=== PATIENT | female | born 1960 | race Caucasian/White ===

== ENCOUNTER 2018-01-09 16:30 | Emergency (ER) | payer MEDICAID ==
[2018-01-09] MEDS ORDERED: Lactated Ringers 1,000 ML IV ONE (16:48)
--- NOTE | 2018-01-09 16:50 | EDM.PDOC ---
ED HPI GENERAL MEDICAL PROBLEM - General Chief Complaint: Head Injury Stated Complaint: TREE FALL ON HER Time Seen by Provider: 01/09/18 16:43 Source of Information: Reports: Patient, EMS, RN Notes Reviewed History Limitations: Reports: No Limitations - History of Present Illness INITIAL COMMENTS - FREE TEXT/NARRATIVE: 57-year-old female brought in by EMS services for a trauma at home, she was standing alongside a tree that fell she ended up getting hit in the head neck upper shoulder region. Was not to the ground did not lose consciousness however had 2 bouts of emesis EMS services were called transported to the hospital for further evaluation. No pain medications provided declines pain medication at this time. Past medical history hypothyroidism, last meal at 11:00 today Neck Pain Score (Numeric/FACES): 2 - Related Data Allergies Allergy/AdvReac Type Severity Reaction Status Date / Time No Known Allergies Allergy Verified 01/09/18 16:44 Home Meds: Home Meds Aspirin [Halfprin] 1 tab PO DAILY 01/09/18 [History] Citalopram Hydrobromide [Celexa] 1 tab PO DAILY 01/09/18 [History] Levothyroxine [Synthroid] 1 tab PO DAILY 01/09/18 [History] Pravastatin Sodium 1 tab PO BEDTIME 01/09/18 [History] Past Medical History Endocrine/Metabolic History: Reports: Hyperthyroidism Social & Family History - Tobacco Use Smoking Status *Q: Never Smoker ED ROS GENERAL - Review of Systems Review Of Systems: See Below Constitutional: Reports: No Symptoms HEENT: Reports: No Symptoms Respiratory: Reports: No Symptoms Cardiovascular: Reports: No Symptoms GI/Abdominal: Reports: Nausea, Vomiting Musculoskeletal: Reports: Neck Pain, Shoulder Pain Skin: Reports: No Symptoms Neurological: Reports: No Symptoms ED EXAM, HEAD INJURY - Physical Exam Exam: See Below Text/Narrative:: Primary survey GCS of 15 airway is open patent clear lungs are clear to auscultation bilaterally cardiovascular demonstrates regular rate and rhythm S1-S2 she is in a c-collar Secondary survey General: Female, not in any distress, alert and oriented x3 HEENT: head is atraumatic normocephalic, eyes pupils equal round reactive to light, sclera clear no conjunctivitis appreciated. Ears tympanic membranes clear and martinez landmarks and light reflex are present bilaterally canals are clear. Nose no septal deviation, nares are clear, no blood present. Mouth mucosa is moist and pink no erythema or exudate noted in soft palate, tongue is midline uvula is midline, dentition is intact. Neck: C-collar deferred Lungs: clear to auscultation bilaterally with symmetrical respirations, no adventitious noise appreciated. CV: Regular rate and rhythm S1 and S2 appreciated no murmurs rubs or gallops noted. 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 DIRECTED Lactated Ringers [Ringers, Lactated] 1,000 ml Med 01/09/18 16:48 Active IV BOLUS Sodium Chloride 0.9% [Normal Saline] 100 ml Med 01/09/18 17:15 Active IV ASDIRECTED Medication Orders Lactated Ringer's (Ringers, Lactated) 1,000 mls @ 500 mls/hr IV BOLUS ONE Stop: 01/09/18 18:47 Last Admin: 01/09/18 17:41 Dose: 500 mls/hr Sodium Chloride (Normal Saline) 100 mls @ 3 mls/sec IV ASDIRECTED JAMEL Last Admin: 01/09/18 17:24 Dose: 3 mls/sec Iopamidol (Isovue-300 (61%)) 100 ml IV . DIRECTED JAMEL Last Admin: 01/09/18 17:24 Dose: 100 ml Labs: Laboratory Tests 01/09/18 01/09/18 Range/Units 17:08 17:08 WBC 9.0 (4.5-11.0) K/uL RBC 4.20 (3.30-5.50) M/uL Hgb 13.0 (12.0-15.0) g/dL Hct 37.6 (36.0-48.0) % MCV 90 (80-98) fL MCH 31 (27-31) pg MCHC 35 (32-36) % Plt Count 265 (150-400) K/uL Neut % (Auto) 78 H (36-66) % Lymph % (Auto) 16 L (24-44) % [place] % (Auto) 5 (2-6) % Eos % (Auto) 1 L (2-4) % Baso % (Auto) 0 (0-1) % Sodium 138 L (140-148) mmol/L Potassium 3.8 (3.6-5.2) mmol/L Chloride 101 (100-108) mmol/L Carbon Dioxide 23 (21-32) mmol/L Anion Gap 17.8 H (5.0-14.0) mmol/L BUN 12 (7-18) mg/dL Creatinine 0.8 (0.6-1.0) mg/dL Est Cr Clr Drug Dosing 72.63 mL/min Estimated GFR (MDRD) > 60 (>60) Glucose 85 (74-106) mg/dL Calcium 8.6 (8.5-10.1) mg/dL Meds: Medications Generic Name Dose Route Start Last Admin Trade Name Freq PRN Reason Stop Dose Admin Lactated Ringer's 1,000 mls @ 500 mls/hr 01/09/18 16:48 01/09/18 17:41 Ringers, Lactated IV 01/09/18 18:47 500 mls/hr BOLUS ONE Administration Sodium Chloride 100 mls @ 3 mls/sec 01/09/18 17:15 01/09/18 17:24 Normal Saline IV 3 mls/sec ASDIRECTED JAMEL Administration Iopamidol 100 ml 01/09/18 17:15 01/09/18 17:24 Isovue-300 (61%) IV 100 ml . DIRECTED JAMEL Administration Departure - Departure Time of Disposition: 18:22 Disposition: Home, Self-Care 01 Condition: Good Clinical Impression: Head injury Qualifiers: Encounter type: initial encounter Qualified Code(s): S09.90XA - Unspecified injury of head, initial encounter - Discharge Information Referrals: PCP,None [Primary Care Provider] - Forms: ED Department Discharge Additional Instructions: Please followup with your primary care provider in 3-5 days if not better, please call return to the emergency department with worsening of symptoms. - My Orders Last 24 Hours: My Active Orders 01/09/18 16:47 Cervical Spine wo Cont [CT] Stat Chest w Cont [CT] Stat Head wo Cont [CT] Stat 01/09/18 16:48 Lactated Ringers [Ringers, Lactated] 1,000 ml IV BOLUS 01/09/18 16:49 Humerus Lt [CR] Stat 01/09/18 17:15 Iopamidol [Isovue-300 (61%)] 100 ml IV . DIRECTED Sodium Chloride 0.9% [Normal Saline] 100 ml IV ASDIRECTED - Assessment/Plan Last 24 Hours: My Active Orders 01/09/18 16:47 Cervical Spine wo Cont [CT] Stat Chest w Cont [CT] Stat Head wo Cont [CT] Stat 01/09/18 16:48 Lactated Ringers [Ringers, Lactated] 1,000 ml IV BOLUS 01/09/18 16:49 Humerus Lt [CR] Stat 01/09/18 17:15 Iopamidol [Isovue-300 (61%)] 100 ml IV . DIRECTED Sodium Chloride 0.9% [Normal Saline] 100 ml IV ASDIRECTED Plan: Assessment Acuity = acute Site and laterality = head injury Etiology = secondary to trauma Manifestations = none Location of injury = Home Lab values = CT scan head, cervical spine and chest show no acute process Plan She will use ibuprofen as needed for pain control follow up with primary care 3- 5 days if not better This note was dictated using muzu tv voice recognition software please call with any questions on syntax or grammar.
[2018-01-09] MEDS ORDERED: Iopamidol 612 MG/ML 100 ML Bottle IV SCH (17:15)
[2018-01-09] MEDS ORDERED: Sodium Chloride 0.9% 100 ML IV SCH (17:15)
--- NOTE | 2018-01-10 09:11 | CR ---
Left humerus Findings: The humerus demonstrates normal alignment. There is no fracture. Soft tissues are unremarka ble. Impression: 1. Negative exam.
== END 2018-01-09 18:41 | disposition home or self-care (01) ==
LOC: JP.ED 16:30
DX: S09.90XA Unspecified injury of head, initial encounter (principal); E03.9 Hypothyroidism, unspecified; Z79.82 Long term (current) use of aspirin; Z79.899 Other long term (current) drug therapy; W20.8XXA Other cause of strike by thrown, projected or falling object, initial encounter; Y92.009 Unspecified place in unspecified non-institutional (private) residence as the place of occurrence of the external cause
CPT/HCPCS: 36415; 70450; 71260; 72125; 73060; 80048; 85025; 96360; 96361; 99284; J7030; J7120; Q9967

== ENCOUNTER 2018-03-02 11:00 | Emergency (ER) | payer MEDICAID ==
[2018-03-02] MEDS ORDERED: Albuterol/Ipratropium 3.0-0.5 MG/3 ML Neb Soln NEB ONE (11:30)
--- NOTE | 2018-03-02 11:36 | EDM.PDOC ---
ED HPI GENERAL MEDICAL PROBLEM - General Chief Complaint: Back Pain or Injury Stated Complaint: COLD LOTS OF COUGHING WITH BACK PAIN Time Seen by Provider: 03/02/18 11:25 Source of Information: Reports: Patient, Old Records, RN History Limitations: Reports: No Limitations - History of Present Illness INITIAL COMMENTS - FREE TEXT/NARRATIVE: 57 yo female presents with L upper back pain associated with coughing. Says it feels like when she had pneumonia. Is a smoker. Was seen in the clinic a week ago and was given an albuterol MDI, prednisone x 5 days, and a Z-pack. She thinks she is worse since starting this. Has not followed up in the clinic. Is not running a fever. Last used her inhaler at 0700h today. Onset: Gradual Onset Date: 02/22/18 Duration: Week(s): (1+) Location: Reports: Chest Quality: Reports: Other (pleuritic) Severity: Moderate Improves with: Reports: Rest Worsens with: Reports: Other (coughing) Context: Reports: Other (coughing frequently, smoker) Associated Symptoms: Reports: Cough. 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: Other (see below) (see HPI) Back Pain Score (Numeric/FACES): 5 Headache Pain Score (Numeric/FACES): 4 - Related Data Allergies Allergy/AdvReac Type Severity Reaction Status Date / Time No Known Allergies Allergy Verified 01/09/18 16:44 Home Meds: Home Meds Aspirin [Halfprin] 1 tab PO DAILY 01/09/18 [History] Citalopram Hydrobromide [Celexa] 1 tab PO DAILY 01/09/18 [History] Levothyroxine [Synthroid] 1 tab PO DAILY 01/09/18 [History] Pravastatin Sodium 1 tab PO BEDTIME 01/09/18 [History] Albuterol [Ventolin HFA] 03/02/18 [History] Azithromycin [Zithromax] 03/02/18 [History] Methotrexate 6 tab PO ASDIRECTED 03/02/18 [History] predniSONE 20 mg PO DAILY 03/02/18 [History] Past Medical History Cardiovascular History: Reports: High Cholesterol 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: Psychiatric History: Reports: Depression Endocrine/Metabolic History: Reports: Hypothyroidism - Past Surgical History Female Surgical History: Reports: Hysterectomy Musculoskeletal Surgical History: Reports: Other (See Below) Other Musculoskeletal Surgeries/Procedures:: trigger finger Social & Family History - Tobacco Use Years of Tobacco use: 3 Packs/Tins Daily: 0.2 - Caffeine Use Caffeine Use: Reports: Coffee - Recreational Drug Use Recreational Drug Use: No ED ROS GENERAL - Review of Systems Review Of Systems: See Below Constitutional: Reports: Other (slightly dizzy at times) HEENT: Reports: No Symptoms Respiratory: Reports: Wheezing, Pleuritic Chest Pain, Cough. Denies: Shortness of Breath, Sputum, Hemoptysis Cardiovascular: Reports: No Symptoms GI/Abdominal: Reports: No Symptoms : Reports: No Symptoms Musculoskeletal: Reports: No Symptoms Skin: Reports: No Symptoms Neurological: Reports: Dizziness Psychiatric: Reports: No Symptoms ED EXAM, UPPER BACK/NECK PAIN - Physical Exam Exam: See Below Exam Limited By: No Limitations General Appearance: Alert, WD/WN, No Apparent Distress Eye Exam: Bilateral Eye: Normal Inspection Ears Exam: Normal External Exam, Normal Canal, Hearing Grossly Normal Nose Exam: Normal Inspection, Normal Mucousa, No Blood Throat/Mouth Exam: Normal Inspection, Normal Lips, Normal Oropharynx, Normal Voice, No Airway Compromise Head Exam: Atraumatic, Normocephalic Neck Exam: Non-Tender Cardiovascular/Respiratory: Regular Rate, Rhythm, Wheezing GI/Abdominal: Soft Back Exam: Normal Inspection. No: CVA Tenderness (R), CVA Tenderness (L) Extremities: Normal Inspection, Normal Range of Motion, Non-Tender, No Pedal Edema Neurologic: buckle coverer II-XII nml As Tested, No Motor/Sensory Deficits, Alert, Normal Mood/Affect, Oriented x 3 Psychiatric: Normal Affect, Normal Mood Skin Exam: Normal Color, Warm/Dry Lymphatic: No Adenopathy Course - Vital Signs Text/Narrative:: CXR- Last Recorded V/S: Last Vital Signs Temp 36.2 C 03/02/18 11:18 Pulse 94 03/02/18 11:18 Resp 16 03/02/18 11:18 BP 167/94 H 03/02/18 11:18 Pulse Ox 97 03/02/18 11:18 - Orders/Labs/Meds Orders: Active Orders 24 hr Category Date Time Status Orthostatic Vital Signs [RC] ASDIRECTED Care 03/02/18 11:37 Active RT Aerosol Therapy [RC] ASDIRECTED Care 03/02/18 11:30 Active Chest 2V [CR] Stat Exams 03/02/18 11:30 Ordered Meds: Medications Discontinued Medications Generic Name Dose Route Start Last Admin Trade Name Renetta PRN Reason Stop Dose Admin Albuterol/Ipratropium 3 ml 03/02/18 11:30 03/02/18 11:34 Duoneb 3.0-0.5 Mg/3 Ml NEB 03/02/18 11:31 3 ml ONETIME ONE Administration - Radiology Interpretation Free Text/Narrative:: CXR-emphysema, no infiltrates Departure - Departure Time of Disposition: 12:07 Disposition: Home, Self-Care 01 Condition: Fair Clinical Impression: Bronchospasm - Discharge Information Referrals: Kathy Pelaez PA [Primary Care Provider] - Forms: ED Department Discharge - My Orders Last 24 Hours: My Active Orders 03/02/18 11:30 RT Aerosol Therapy [RC] ASDIRECTED Chest 2V [CR] Stat 03/02/18 11:37 Orthostatic Vital Signs [RC] ASDIRECTED - Assessment/Plan Last 24 Hours: My Active Orders 03/02/18 11:30 RT Aerosol Therapy [RC] ASDIRECTED Chest 2V [CR] Stat 03/02/18 11:37 Orthostatic Vital Signs [RC] ASDIRECTED
--- NOTE | 2018-03-03 09:09 | CR ---
Chest 2V INDICATION: back pain with cough COMPARISON: None FINDINGS: Two views. Heart size normal. Lungs are clear. No infiltrate or pleural effusion. No sig ns of pulmonary edema.
== END 2018-03-02 12:21 | disposition home or self-care (01) ==
LOC: JP.ED 11:00
DX: J98.01 Acute bronchospasm (principal); E03.9 Hypothyroidism, unspecified; E78.00 Pure hypercholesterolemia, unspecified; Z79.82 Long term (current) use of aspirin; Z79.899 Other long term (current) drug therapy
CPT/HCPCS: 71046; 94640; 99284; J7620

== ENCOUNTER 2024-07-05 07:23 | Emergency (ER) | payer SELFPAY ==
[2024-07-05 08:04] LABS: BASOPHILS PERCENT AUTO 0.4 % (0.1-1.3); EOSINOPHILS ABSOLUTE AUTO 0.07 K/uL (0.00-0.40); EOSINOPHILS PERCENT AUTO 1.4 % (0.0-5.4); HEMATOCRIT 34.7 % (34.3-46.0); IMMATURE GRAN ABSOLUTE AUTO 0.03 K/uL (0.00-0.23); IMMATURE GRAN PERCENT AUTO 0.6 % (0.0-0.7); LYMPHOCYTES ABSOLUTE AUTO 0.98 K/uL (0.8-3.3); LYMPHOCYTES PERCENT AUTO 19.3 % (11.4-47.7); MEAN CORPUSCULAR HEMOGLOBIN 31.3 pg (31.6-35.5); MEAN CORPUSCULAR HGB CONC 34.6 g/dL (31.6-35.5); MEAN CORPUSCULAR VOLUME 90.4 fL (81.4-99.0); MONOCYTES PERCENT AUTO 5.9 % (3.3-12.6); NEUTROPHILS ABSOLUTE AUTO 3.69 K/uL (1.0-7.6); NEUTROPHILS PERCENT AUTO 72.4 % (40.0-78.1); PLATELET COUNT,PLT 242 K/uL (130-375); RED BLOOD CELL COUNT 3.84 M/uL (3.77-5.24); WHITE BLOOD CELL COUNT,WBC 5.1 K/uL (3.2-11.0)
[2024-07-05 08:05] LABS: BASOPHILS ABSOLUTE AUTO 0.02 K/uL (0.00-0.10)
[2024-07-05 08:28] LABS: ANION GAP 12.8 mmol/L (5.0-14.0); CALCIUM 9.3 mg/dL (8.5-10.1); CREATININE 1.1 mg/dL (0.6-1.0); POTASSIUM,K 3.8 mmol/L (3.6-5.2); TROPONIN I HIGH SENSITIVITY 12.4 pg/mL (<=60.3)
== END 2024-07-05 09:07 | disposition home or self-care (01) ==
LOC: JP.ED 07:23
DX: R20.2 Paresthesia of skin (principal); E78.00 Pure hypercholesterolemia, unspecified; E03.9 Hypothyroidism, unspecified; Z90.710 Acquired absence of both cervix and uterus; Z79.82 Long term (current) use of aspirin; Z79.899 Other long term (current) drug therapy; Z88.3 Allergy status to other anti-infective agents
CPT/HCPCS: 36415; 80048; 84484; 85025; 93005; 93010; 99283; 99284